=== PATIENT | female | born 1955 | race Caucasian/White ===

== ENCOUNTER 2022-01-13 08:28 | Observation (INO) ==
[~2022-01-13 08:28] MED LIST: Buffered Lidocaine 1% SYRIN 1 ml INTRADERM ONE; HYDROmorphone 1 MG/1 ML SYRINGE IV PRN; Lactated Ringers 1000 ml BAG 1,000 ML IV SCH; Naloxone 0.4 mg VIAL 0.4 mg/ml 1 ml VIAL IV PRN; Prochlorperazine 5 mg/ml 2 ml VIAL (10 mg) IV PRN
[2022-01-13] MEDS ORDERED: ceFAZolin 2 GM PREMIX 2 GM/50 ML BAG ONE (08:54)
[2022-01-13] MEDS ORDERED: fentaNYL 100 mcg/2 ml 50 MCG/ML VIAL ONE ×2 (11:19→11:20)
[2022-01-13] MEDS ORDERED: Midazolam 2 mg/2 ml VIAL 1 mg/ml 2 ml VIAL (2 mg) ONE ×2 (11:19→11:20)
[2022-01-13] MEDS ORDERED: Lidocaine 2% PF 5 ML VIAL ONE (11:58)
[2022-01-13] MEDS ORDERED: Glycopyrrolate IV 0.2 MG/ML 1 ML VIAL ONE ×2 (12:10→12:13)
[2022-01-13] MEDS ORDERED: Dexamethasone IV 4 MG/ML VIAL 1 ml VIAL ONE (12:13)
[2022-01-13] MEDS ORDERED: Ondansetron 4 mg VIAL 2 MG/ML 2 ml VIAL ONE (12:13)
[2022-01-13] MEDS ORDERED: Atropine 1 MG/ML INJ 1 ML VIAL ONE (12:25)
[2022-01-13] MEDS ORDERED: Ondansetron ODT 4 mg TAB 4 MG TAB PO PRN (13:01)
[2022-01-13] MEDS ORDERED: Morphine 2 MG/ML SYRINGE IV PRN (13:01)
[2022-01-13] MEDS ORDERED: Lactulose 30 ml UDC PO PRN (13:01)
[2022-01-13] MEDS ORDERED: Magnesium Hydroxide LIQ 30 ML UDC PO PRN (13:01)
[2022-01-13] MEDS ORDERED: Ondansetron 4 mg VIAL 2 MG/ML 2 ml VIAL IV PRN (13:01)
[2022-01-13] MEDS: Lactated Ringers 1000 ml BAG 1,000 ML IV SCH (15:34)
[2022-01-13] MEDS: ceFAZolin 1 GM ADVAN 1 GM in NS 0.9% 50 ML 50 ML IVPB SCH (23:40)
[2022-01-13] MEDS: Cholecalciferol (VIT D3) 1,000 unit TAB PO SCH (23:47)
[2022-01-13] MEDS: Magnesium Hydroxide LIQ 30 ML UDC PO SCH (23:50)
[2022-01-14] MEDS: ceFAZolin 1 GM ADVAN 1 GM in NS 0.9% 50 ML 50 ML IVPB SCH ×2 (03:45→11:56)
[2022-01-14] MEDS ORDERED: Lactated Ringers 1000 ml BAG 1,000 ML IV ONE ×2 (08:48→14:49)
[2022-01-14] MEDS ORDERED: Vitamin THERAPEUTIC TAB PO SCH (09:00)
[2022-01-14] MEDS ORDERED: Enoxaparin 40 MG/0.4 ML SYR SUBCUT SCH (09:00)
[2022-01-14] MEDS: Magnesium Hydroxide LIQ 30 ML UDC PO SCH (09:30)
[2022-01-14] MEDS: Cholecalciferol (VIT D3) 1,000 unit TAB PO SCH (09:30)
[2022-01-14 10:15] LABS: Hematocrit 28 % (35-47); Hemoglobin 9.1 g/dL (12.0-16.0); Mean Platelet Volume 9.3 fL (7.4-10.4); Platelet Count 159 10^3/uL (150-450)
[2022-01-14] MEDS: Lactated Ringers 1000 ml BAG 1,000 ML IV SCH (10:37)
[2022-01-14 10:38] LABS: Calcium 8.2 mg/dL (8.6-10.3); Potassium 4.2 mmol/L (3.5-5.0); eGFR CKD-EPI 94.8 (>60)
[2022-01-14] MEDS ORDERED: Lactated Ringers 1000 ml BAG 1,000 ML IV SCH (11:44)
[2022-01-14 16:09] VITALS: BP 110/58
== END 2022-01-14 16:50 | disposition home or self-care (01) ==
LOC: OR 08:28 → SSU 08:28 → EDSTATUS 10:30
PROVIDERS: ADMIT Orthopaedic Surgery Adult Reconstructive Orthopaedic Surgery; ATTEND Orthopaedic Surgery Adult Reconstructive Orthopaedic Surgery